=== PATIENT | female | born 1955 | race Caucasian/White ===

== ENCOUNTER 2024-11-29 23:15 | Emergency (ER) | payer MEDICARE, OTHER ==
[2024-11-29 23:28] VITALS: PULSE 80
[2024-11-29] MEDS: Lidocaine 1% 5 ML VIAL INJECT ONE (23:53)
[2024-11-30] MEDS: Bacitracin Oint 1 GM U/D Packet TOP ONE (00:15)
[2024-11-30 01:21] VITALS: BP 104/69
== END 2024-11-30 01:21 | disposition home or self-care (01) ==
LOC: CC.ED 23:15
DX: S81.811A Laceration without foreign body, right lower leg, initial encounter (principal); I10 Essential (primary) hypertension; Z91.018 Allergy to other foods; Z86.16 Personal history of COVID-19; W22.8XXA Striking against or struck by other objects, initial encounter; Y93.89 Activity, other specified
CPT/HCPCS: 12002; 99282; J2003